=== PATIENT | male | born 1935 | race Caucasian/White ===

== ENCOUNTER 2016-07-19 07:16 | Inpatient (IN) | payer MEDICARE ==
[~2016-07-19] VITALS: Ht 160 cm; Wt 59.8 kg
[2016-07-19] VITALS (17 sets, daily range): BP systolic 101–142; BP diastolic 54–72; PULSE 68–113; RESP 18–36; TEMP 96.1–98.7; O2SAT 92–100
[~2016-07-19 07:16] MED LIST: ACET; ALBU0.086 INH; ALBU17I INH; ASPI81TA82 PO; ATOR80TA PO; DULO20 PO; FURO20TA PO; HYDR10SO PO; IPRA0.02 NEB; ISOS30TA3 PO; LEVO500T3 PO; LISI5 PO; LORA1TAB PO; MULT-65 PO; NITR0.4S SL; OMEP20TA39 PO; PRED1TAB PO; STOO100T PO; TAMS0.4C67 PO; TICA90 PO; TOBRO; VITA20003 PO; Z.0.OXYGEN INH
--- NOTE | 2016-07-19 07:46 | PD ---
HPI Chief Complaint: Respiratory Distress Time Seen by Provider: 07:32 Travel History International Travel<30 days: No Contact w/Intl Traveler<30days: No Traveled to known affect area: No History of Present Illness HPI 81yo M with PMH of COPD on home O2 3L NC, CHF, BPH, CAD s/p cardiac stent with JASWINDER left main, left anterior descending and left circumflex. Pt states he has been sob for 2 weeks. He was given duonebs x4 and methylprednisolone 125mg IV by EVAC and states he is a little better. Pt is still very sob and breathing at 32 breaths a minute. Pt immediately placed on BIPAP. Able to answer a few words at a time. Denies any n/v, abdominal pain, weakness or numbness. PFSH Past Medical History Arthritis: No Asthma: Yes Autoimmune Disease: No Blood Disorders: No Anxiety: No Depression: No Heart Rhythm Problems: Yes Cancer: No Cardiovascular Problems: Yes (pulmonary htn) High Cholesterol: Yes Chemotherapy: Yes Chest Pain: Yes Congestive Heart Failure: No COPD: Yes Cerebrovascular Accident: No Coronary Artery Disease: Yes Diabetes: No Diminished Hearing: No Endocrine: No Gastrointestinal Disorders: Yes (TOUBLE SWALLOWING- BUT CAN EAT REGULAR FOOD) GERD: Yes Glaucoma: No Genitourinary: No Headaches: No Hepatitis: No Hiatal Hernia: No Hypertension: No Immune Disorder: No Inguinal Hernia: Yes Kidney Stones: No Musculoskeletal: Yes (LEFT HIP REPLACEMENT) Neurologic: Yes (CEREBRAL ANEURYSM X 2) Psychiatric: Yes (ANXIETY) Reproductive: No Respiratory: Yes (COPD) Immunizations Current: No Migraines: No Myocardial Infarction: No Pneumonia: Yes (FEB 2010, ?2013) Radiation Therapy: No Renal Failure: No Seizures: No Sickle Cell Disease: No Sleep Apnea: No Thyroid Disease: No Ulcer: No PNEUMOCCOCAL Vaccine (Year): 2010 Past Surgical History Abdominal Surgery: Yes (RIGHT HERNIA) AICD: No Appendectomy: No Body Medical Devices: CEREBRAL CLIPS Cardiac Surgery: No Cholecystectomy: No Coronary Stent: Yes Ear Surgery: No Endocrine Surgery: No Eye Surgery: No Genitourinary Surgery: No Gynecologic Surgery: No Joint Replacement: No Neurologic Surgery: Yes (ANEURYSM REPAIR X 2) Oral Surgery: No Pacemaker: No Thoracic Surgery: Yes (RIGHT LUNG RESECTION) Other Surgery: Yes (CAROTID STENT) Social History Alcohol Use: No Tobacco Use: No Substance Use: No Allergies-Medications (Allergen,Severity, Reaction): Coded Allergies: Duragesic (Verified Allergy, Severe, 02/25/16) Uncoded Allergies: morphine (Allergy, Severe, 02/25/16) Reported Meds & Prescriptions Reported Meds & Active Scripts Active Reported Isosorbide Mononitrate ER (Isosorbide Mononitrate) 30 Mg Rosalie 30 Mg PO DAILY Vitamin D3 (Cholecalciferol) 1,000 Unit Tab 1,000 Units PO DAILY Ventolin Hfa 18 GM Inh (Albuterol Sulfate) 90 Mcg/Act Aer 2 Puff INH Q6H PRN Tamsulosin (Tamsulosin HCl) 0.4 Mg Cap 0.4 Mg PO HS Prednisone 10 Mg Tab 10 Mg PO DAILY Oxycodone ER (Oxycodone HCl) 20 Mg Tab 20 Mg PO DAILY Omeprazole 20 Mg Tab 20 Mg PO BID Multi Vitamin (Multiple Vitamin) 1 Tab Tab 1 Tab PO DAILY Ativan (Lorazepam) 1 Mg Tab 1 Mg PO TID PRN Ipratropium Neb (Ipratropium [place]) 0.5 Mg/2.5 Ml Amp 0.5 Mg NEB Q6HR PRN [place] (Hydrocodone-Acetaminophen) 10-325 Mg Tab 1 Tab PO Q6H PRN Lasix (Furosemide) 20 Mg Tab 20 Mg PO DAILY Formoterol Fumarate Dihydrate 1 Pow Pow 12 Mcg NEB BID USE WITH BUDESONIDE Budesonide Neb 0.5 Mg/2 Ml Neb 0.5 Mg NEB BID USE WITH FORMOTEROL 12MCG Cymbalta DR (Duloxetine HCl) 20 Mg Capdr 20 Mg PO DAILY Atorvastatin (Atorvastatin Calcium) 80 Mg Tab 80 Mg PO HS Aspirin Adult Low Strength (Aspirin) 81 Mg Tabdr 81 Mg PO DAILY Albuterol Neb (Albuterol Sulfate) 2.5 Mg/3 Ml Neb 2.5 Mg NEB QID PRN Acetylcysteine Liq/Neb (Acetylcysteine) 200 mg/ml Soln 2 Ml NEB Q6HR PRN Review of Systems Except as stated in HPI: all other systems reviewed are Neg Physical Exam Narrative GENERAL: 81yo M in distress. SKIN: Warm and dry. HEAD: Atraumatic. Normocephalic. EYES: Pupils equal and round. No scleral icterus. No injection or drainage. ENT: No nasal bleeding or discharge. Mucous membranes pink and moist. NECK: Trachea midline. No JVD. CARDIOVASCULAR: Regular rate and rhythm. No murmur appreciated. RESPIRATORY: + accessory muscle use. Expiratory wheezing on right lung. RR: 32 breaths a minute. GASTROINTESTINAL: Abdomen soft, non-tender, nondistended. No rebound tenderness or guarding. MUSCULOSKELETAL: No obvious deformities. No clubbing. No cyanosis. No edema. NEUROLOGICAL: Awake and alert. No obvious cranial nerve deficits. Motor grossly within normal limits. Normal speech. PSYCHIATRIC: Appropriate mood and affect; insight and judgment normal. Data Data Last Documented VS Vital Signs Date Time Temp Pulse Resp B/P Pulse Ox O2 Delivery O2 Flow Rate FiO2 07/19/16 08:00 95 07/19/16 07:27 Aerosol Mask 15 07/19/16 07:18 96.1 113 36 101/64 Orders Arterial Blood Gas (Abg) (07/19/16 ) Complete Blood Count With Diff (07/19/16 07:42) Basic Metabolic Panel (Bmp) (07/19/16 07:42) B-Type Natriuretic Peptide (07/19/16 07:42) Act Partial Throm Time (Ptt) (07/19/16 07:42) Prothrombin Time / Inr (Pt) (07/19/16 07:42) Magnesium (Mg) (07/19/16 07:42) Ckmb (Isoenzyme) Profile (07/19/16 07:42) Troponin I (07/19/16 07:42) Blood Culture (07/19/16 07:42) Iv Access Insert/Monitor (07/19/16 07:42) Electrocardiogram (07/19/16 07:42) Ecg Monitoring (07/19/16 07:42) Oximetry (07/19/16 07:42) Oxygen Administration (07/19/16 07:42) Chest, Single Ap (07/19/16 07:42) Albuterol Neb (Albuterol Neb) (07/19/16 08:00) Lactic Acid Sepsis Protocol (07/19/16 07:47) Resp Bipap / Cpap Non Invas Vt (07/19/16 ) Arterial Blood Gas (Abg) (07/19/16 ) Vancomycin Inj (Vancomycin Inj) (07/19/16 09:45) Piperacil-Tazo 3.375 Gm Premix (Zosyn 3. (07/19/16 09:45) Admit Order (Ed Use Only) (07/19/16 09:48) Labs Laboratory Tests Test 07/19/16 07/19/16 07/19/16 07/19/16 08:00 08:30 08:45 09:05 Blood Gas Puncture Site LT RADIAL LT RADIAL Blood Gas Patient Temperature 98.6 98.6 Blood Gas HCO3 26 mmol/L 28 mmol/L Blood Gas Base Excess 0.4 mmol/L 3.3 mmol/L Blood Gas Oxygen Saturation 92 % 92 % Arterial Blood pH 7.31 7.38 Arterial Blood Partial 53 mmHg 49 mmHg Pressure CO2 Arterial Blood Partial 82 mmHg 80 mmHG Pressure O2 Arterial Blood Oxygen Content 13.8 Vol % 15.7 Vol % Arterial Blood 1.4 % 2.3 % Carboxyhemoglobin Arterial Blood Methemoglobin 0.8 % 2.0 % Blood Gas Hemoglobin 10.6 G/DL 12.1 G/DL Oxygen Delivery Device BIPAP BIPAP Blood Gas Ventilator Setting IPAP12/EPAP6 IPAP12/EPAP6 White Blood Count 16.7 TH/MM3 Red Blood Count 4.08 MIL/MM3 Hemoglobin 12.3 GM/DL Hematocrit 38.1 % Mean Corpuscular Volume 93.5 FL Mean Corpuscular Hemoglobin 30.1 PG Mean Corpuscular Hemoglobin 32.2 % Concent Red Cell Distribution Width 17.9 % Platelet Count 163 TH/MM3 Mean Platelet Volume 9.6 FL Neutrophils (%) (Auto) 88.3 % Lymphocytes (%) (Auto) 6.8 % Monocytes (%) (Auto) 3.4 % Eosinophils (%) (Auto) 1.1 % Basophils (%) (Auto) 0.4 % Neutrophils # (Auto) 14.8 TH/MM3 Lymphocytes # (Auto) 1.1 TH/MM3 Monocytes # (Auto) 0.6 TH/MM3 Eosinophils # (Auto) 0.2 TH/MM3 Basophils # (Auto) 0.1 TH/MM3 CBC Comment DIFF FINAL Differential Comment Prothrombin Time 10.0 SEC Prothromb Time International 0.9 RATIO Ratio Activated Partial 24.1 SEC Thromboplast Time Sodium Level 143 MEQ/L Potassium Level 3.7 MEQ/L Chloride Level 104 MEQ/L Carbon Dioxide Level 31.6 MEQ/L Anion Gap 7 MEQ/L Blood Urea Nitrogen 15 MG/DL Creatinine 0.58 MG/DL Estimat Glomerular Filtration 135 ML/MIN Rate Random Glucose 132 MG/DL Calcium Level 8.3 MG/DL Magnesium Level 2.1 MG/DL Total Creatine Kinase 43 U/L Troponin I 0.04 NG/ML B-Type Natriuretic Peptide 127 PG/ML Lactic Acid Level 4.7 mmol/L Blood Gas Inspired Oxygen 40 % MDM Medical Decision Making Medical Screen Exam Complete: Yes Emergency Medical Condition: Yes Interpretation(s) EKG: Sinus tachycardia at 107bpm. STD V2-V6. Low voltage. Differential Diagnosis CHF exacerbation vs. COPD exacerbation vs. Pneumonia vs. ACS Narrative Course 81yo M with SOB for 3 weeks, worsening. Pt presents tachypneic with wheezing on exam. Pt immediately placed on BIPAP and feels better. ABG initially showed respiratory acidosis with pH 7.31. pCO2 53. O2 82. HCO3. Pt is on BIPAP 12/6 at 40%. After about an hour on the BIPAP, repeat ABG showed improved respiratory status. pH 7.37. pCO2 48.8 pO2 79.8. HCO2 28. CXR showed presumed scar at right lung base with background lung changes suggestive of obstructive airway disease/emphysema. No acute finding. Pt given albuterol neb Q2 Hr. Labs reviewed, leukocytosis at 16.7. Troponin 0.04. Lactic acid elevated at 4.7. Empirically given vancomycin and zosyn after blood cultures drawn. Pt initially was given almost 1 liter of NS IVF when BP initially was systolic 80s but stopped after I found out pt had history of CHF. BP improved to systolic in the 120s. HR also decreased to the 90s. Pt feels better on the BIPAP and blood gas is improving so will continue pt on BIPAP for now. Discussed with family possibility of intubation and they are open to do. Discussed with segmental paver installer Dr. Agarwal and accepted to the ICU. Critical Care Narrative Aggregate critical care time was 75 minutes. Time to perform other separately billable procedures was not included in the critical care time. My time did not include minutes spent treating any other patients simultaneously or on activities that did not directly contribute to the patient's treatment. The services I provided to this patient were to treat and/or prevent clinically significant deterioration that could result in: cardiovascular and respiratory arrest and . I provided critical care services requiring my management, as noted below: Chart data review, documentation time, medication orders and management, vital sign assessments/reviewing monitor data, ordering and reviewing lab tests, ordering and interpreting/reviewing x-rays and diagnostic studies, care of the patient and discussion of the patient with the admitting physicians. Diagnosis Primary Impression: Acute hypercapnic respiratory failure Admitting Information Admitting Physician Requests: it Ebonie Mariscal DO Jul 19, 2016 07:46
[2016-07-19] MEDS: RESP: ALBUTEROL 2.5 MG/3 ML NEB (SCH) NEB ×7 (07:53→23:50)
--- NOTE | 2016-07-19 08:08 | RADRPT ---
EXAM DATE/TIME: 07/19/2016 07:39 [facility] COMPARISON: CHEST SINGLE AP, February 27, 2016, 3:43. INDICATIONS : Patient has been short of breath since yesterday. MEDICAL HISTORY : Emphysema. Asthma SURGICAL HISTORY : Right lung resection ENCOUNTER: Initial ACUITY: 1 day PAIN SCORE: 0/10 LOCATION: chest FINDINGS: Portable AP view of the chest demonstrates a normal-sized cardiac silhouette calcification of the aor ta. Lungs are hyperinflated and there is chronic atelectasis versus scar at the right base. No pleura l effusion or pneumothorax is identified. Bones and soft tissues demonstrate no acute finding. Azygos fissure is present. CONCLUSION: Presumed scar at the right lung base with background lung changes suggestive of obstructive airways d isease/emphysema. Otherwise, no acute finding is identified. Vern Real MD on July 19, 2016 at 8:01 Board Certified Radiologist. This report was verified electronically.
[2016-07-19 08:10] LABS: BLOOD GAS BASE EXCESS 0.4 mmol/L (-2-2); BLOOD GAS CARBOXYHEMOGLOBIN 1.4 % (0-4); BLOOD GAS HCO3 26 mmol/L (22-26); BLOOD GAS METHEMOGLOBIN 0.8 % (0-2); BLOOD GAS O2 HGB SATURATION 92 % (90-100); BLOOD GAS OXYGEN CONTENT 13.8 Vol % (12.0-20.0); BLOOD GAS PCO2 53 mmHg (38-42); BLOOD GAS PO2 82 mmHg (61-120); BLOOD GAS TOTAL HGB 10.6 G/DL (12.0-16.0); CRITICAL VALUE YES; TEMP CORR TO 98.6
[2016-07-19 08:11] LABS: DRAW SITE LT RADIAL; NUMBER OF ARTERIAL PUNCTURES 1; OXYGEN DEVICE BIPAP; STAT YES; ULNAR PULSE PRESENT; VENT SETTINGS IPAP12/EPAP6
[2016-07-19 09:02] LABS: AUTOMATED NEUTROPHIL # 14.8 TH/MM3 (1.8-7.7); BASOPHIL # 0.1 TH/MM3 (0-0.2); BASOPHIL % 0.4 % (0.0-2.0); EOSINOPHIL # 0.2 TH/MM3 (0-0.4); EOSINOPHIL % 1.1 % (0.0-4.0); HEMATOCRIT 38.1 % (39.0-51.0); HEMO FLAGS DIFF FINAL; LYMPH % 6.8 % (9.0-44.0); LYMPHOCYTE # 1.1 TH/MM3 (1.0-4.8); MEAN CELL VOLUME 93.5 FL (80.0-100.0); MEAN CORPUSCULAR HEMOGLOBIN 30.1 PG (27.0-34.0); MEAN CORPUSCULAR HGB CONC 32.2 % (32.0-36.0); MONO % 3.4 % (0.0-8.0); NEUT % 88.3 % (16.0-70.0); PLATELET COUNT 163 TH/MM3 (150-450); RED BLOOD COUNT 4.08 MIL/MM3 (4.50-5.90); RED CELL DISTRIBUTION WIDTH 17.9 % (11.6-17.2); WHITE BLOOD COUNT 16.7 TH/MM3 (4.0-11.0)
[2016-07-19 09:11] LABS: APTT (PATIENT) 24.1 SEC (24.3-30.1); INTERNATIONAL NORMALIZED RATIO 0.9 RATIO
[2016-07-19 09:12] LABS: BLOOD GAS BASE EXCESS 3.3 mmol/L (-2-2); BLOOD GAS CARBOXYHEMOGLOBIN 2.3 % (0-4); BLOOD GAS HCO3 28 mmol/L (22-26); BLOOD GAS O2 HGB SATURATION 92 % (90-100); BLOOD GAS OXYGEN CONTENT 15.7 Vol % (12.0-20.0); BLOOD GAS PCO2 49 mmHg (38-42); BLOOD GAS PO2 80 mmHG (61-120); BLOOD GAS TOTAL HGB 12.1 G/DL (12.0-16.0); TEMP CORR TO 98.6
[2016-07-19 09:13] LABS: CRITICAL VALUE NO; DRAW SITE LT RADIAL; FIO2 40 %; NUMBER OF ARTERIAL PUNCTURES 1; OXYGEN DEVICE BIPAP; STAT YES; ULNAR PULSE PRESENT; VENT SETTINGS IPAP12/EPAP6
[2016-07-19 09:16] LABS: BICARBONATE 31.6 MEQ/L (21.0-32.0); MAGNESIUM 2.1 MG/DL (1.5-2.5); POTASSIUM 3.7 MEQ/L (3.5-5.1)
[2016-07-19] MEDS ORDERED: VANCOMYCIN INJ 1,000 MG in SODIUM CHLOR 0.9% 250 ML INJ 250 ML IV ONE (09:45)
[2016-07-19] MEDS ORDERED: PIPERACIL-TAZO 3.375 GM PREMIX 50 ML IV ONE (09:45)
[2016-07-19] MEDS ORDERED: MISCELLANEOUS NURSING INFORMATION XX SCH (10:00)
[2016-07-19] MEDS ORDERED: METOCLOPRAMIDE HCL 10 MG/2 ML VIAL IV PRN (10:00)
[2016-07-19] MEDS ORDERED: ZOLPIDEM TARTRATE 5 MG TAB PO PRN (10:00)
[2016-07-19] MEDS ORDERED: ACETAMINOPHEN 325 MG TAB PO PRN (10:00)
[2016-07-19] MEDS: HEPARIN SODIUM - SQ 10,000 UNITS/ML VIAL SQ SCH ×2 (10:00→21:57)
[2016-07-19] MEDS ORDERED: SODIUM CHLORIDE 0.9% FLUSH 5 ML FLUSH IV FLUSH PRN (10:00)
[2016-07-19] MEDS ORDERED: RESP: ALBUTEROL 2.5 MG/IPRATROPIUM 0.5 MG NEB (PRN) INH (10:00)
[2016-07-19] MEDS ORDERED: ONDANSETRON HCL 4 MG/2 ML VIAL IV PRN (10:00)
[2016-07-19] MEDS ORDERED: CHLORHEXIDINE GLUCONATE 2 % 1 PACK (2 CLOTHS) TOP PRN (10:00)
[2016-07-19 10:50] LABS: LACTIC ACID GHOST NOT REPORTABLE
[2016-07-19] MEDS ORDERED: PRED10 PO (12:19)
[2016-07-19] MEDS ORDERED: ALBU0.08 NEB (12:19)
[2016-07-19] MEDS ORDERED: VENTAER INH (12:19)
[2016-07-19] MEDS ORDERED: DULO20 PO (12:19)
[2016-07-19] MEDS ORDERED: ACET20SO3 NEB (12:19)
[2016-07-19] MEDS ORDERED: VITA100018 PO (12:19)
[2016-07-19] MEDS ORDERED: LORA-474 PO (12:19)
[2016-07-19] MEDS ORDERED: TAMS0.4C4 PO (12:19)
[2016-07-19] MEDS ORDERED: ATOR1TAB18 PO (12:19)
[2016-07-19] MEDS ORDERED: MULT-135 PO (12:19)
[2016-07-19] MEDS ORDERED: BUDE0.5S NEB (12:19)
[2016-07-19] MEDS ORDERED: ISOS30TA3 PO (12:19)
[2016-07-19] MEDS ORDERED: OXYC-405 PO (12:19)
[2016-07-19] MEDS ORDERED: HYDR-3366 PO (12:19)
[2016-07-19] MEDS ORDERED: FURO1TAB62 PO (12:19)
[2016-07-19] MEDS ORDERED: OMEP20TA PO (12:19)
[2016-07-19] MEDS ORDERED: ASPI1TAB91 PO (12:19)
[2016-07-19] MEDS ORDERED: IPRA0.02 NEB (12:19)
[2016-07-19] MEDS ORDERED: FORM1POW2 NEB (12:19)
--- NOTE | 2016-07-19 15:20 | EKG ---
Date Performed: 07/19/2016 Time Performed: 08:02:58 PTAGE: 81 years EKG: SINUS TACHYCARDIA LOW QRS VOLTAGE IN EXTREMITY LEADS SEPTAL MYOCARDIAL INFARCTION ST DEPRES MAGGIE, CONSIDER LATERAL ISCHEMIA ABNORMAL ECG PREVIOUS TRACING : 02/27/2016 04.55 Compared to previous tracing, lateral ST depression is now present, inferior T wave inversion is no longer evident. DOCTOR: Peter Feliciano Interpretating Date/Time 07/19/2016 15:19:38
[2016-07-19] MEDS: RESP: ALBUTEROL 2.5 MG/IPRATROPIUM 0.5 MG NEB (SCH) INH ×3 (15:32→23:50)
[2016-07-19] MEDS: RESP: ALBUTEROL 2.5 MG/IPRATROPIUM 0.5 MG NEB (SCH) NEB ×5 (15:33→23:47)
[2016-07-19] MEDS: AZITHROMYCIN INJ 500 MG in SODIUM CHLOR 0.9% 250 ML INJ 250 ML IV SCH (15:41)
[2016-07-19] MEDS ORDERED: ALPRAZolam 1 MG TAB PO ONE (15:45)
[2016-07-19] MEDS: CEFEPIME INJ 2,000 MG in SODIUM CHLORIDE 0.9% INJ 100 ML IV SCH (17:31)
[2016-07-19] MEDS: methylPREDNISolone SOD SUCC 40 MG/1 ML VIAL IV PUSH SCH (17:31)
--- NOTE | 2016-07-19 17:52 | HHI.HP ---
HPI Service Critical Care Medicine Primary Care Physician Chan Brewster MD, PhD Admission Diagnosis Hypoxic and hypercapneic respiratory failure Diagnosis: Travel History International Travel<30 Days: No Contact w/Intl Traveler <30 Da: No Traveled to Known Affected Are: No History of Present Illness 81-year-old male with past medical history of COPD on home O2 3L NC, CHF, BPH, coronary artery disease s/p cardiac stent 02/26/16 with drug eluting stent left main, left anterior descending and left circumflex. Per patient statement he has been short of breath for 2 weeks. He was given duonebs x4 and methylprednisolone 125mg IV by EVAC and he admits some improvement. Review of Systems ROS Unable to obtain patient on facemask BiPAP Past Family Social History Allergies: Coded Allergies: Duragesic (Verified Allergy, Severe, 02/25/16) Uncoded Allergies: morphine (Allergy, Severe, 02/25/16) Past Medical History Coronary artery disease Hypertension Hyperlipidemia COPDsevere, FEV1 less than 500 mL's Esophageal strictures Chronic hypoxemia Lumbar stenosis Prior acute [place] Emphysema Past Surgical History Prostate biopsy Opening her's and clipping of a internal carotid artery Craniotomy Bypass graft to the left subclavian artery to a colonoscopy EGD Cataract surgery Right inguinal hernia repair Right lower lobectomy with regimen section secondary to right lung mass Percutaneous stents to the left internal iliac artery, left common iliac 2 Vasectomy Left total hip arthroplasty Reported Medications Reported Meds & Active Scripts Active Reported Isosorbide Mononitrate ER (Isosorbide Mononitrate) 30 Mg Rosalie 30 Mg PO DAILY Vitamin D3 (Cholecalciferol) 1,000 Unit Tab 1,000 Units PO DAILY Ventolin Hfa 18 GM Inh (Albuterol Sulfate) 90 Mcg/Act Aer 2 Puff INH Q6H PRN Tamsulosin (Tamsulosin HCl) 0.4 Mg Cap 0.4 Mg PO HS Prednisone 10 Mg Tab 10 Mg PO DAILY Oxycodone ER (Oxycodone HCl) 20 Mg Tab 20 Mg PO DAILY Omeprazole 20 Mg Tab 20 Mg PO BID Multi Vitamin (Multiple Vitamin) 1 Tab Tab 1 Tab PO DAILY Ativan (Lorazepam) 1 Mg Tab 1 Mg PO TID PRN Ipratropium Neb (Ipratropium Lane) 0.5 Mg/2.5 Ml Amp 0.5 Mg NEB Q6HR PRN [place] (Hydrocodone-Acetaminophen) 10-325 Mg Tab 1 Tab PO Q6H PRN Lasix (Furosemide) 20 Mg Tab 20 Mg PO DAILY Formoterol Fumarate Dihydrate 1 Pow Pow 12 Mcg NEB BID USE WITH BUDESONIDE Budesonide Neb 0.5 Mg/2 Ml Neb 0.5 Mg NEB BID USE WITH FORMOTEROL 12MCG Cymbalta DR (Duloxetine HCl) 20 Mg Capdr 20 Mg PO DAILY Atorvastatin (Atorvastatin Calcium) 80 Mg Tab 80 Mg PO HS Aspirin Adult Low Strength (Aspirin) 81 Mg Tabdr 81 Mg PO DAILY Albuterol Neb (Albuterol Sulfate) 2.5 Mg/3 Ml Neb 2.5 Mg NEB QID PRN Acetylcysteine Liq/Neb (Acetylcysteine) 200 mg/ml Soln 2 Ml NEB Q6HR PRN Active Ordered Medications Current Medications Medications (Trade) Dose Ordered Sig/Fredis Route PRN Reason Start Time Stop Time Status Last Admin Dose Admin IV Flush (NS Flush) 2 ml UNSCH PRN IV FLUSH FLUSH AFTER USING IV ACCESS 07/19/16 10:00 IV Flush (NS Flush) 2 ml BID IV FLUSH 07/19/16 21:00 Acetaminophen (Tylenol) 650 mg Q6H PRN PO PAIN 1-10 AND/OR FEVER >101F 07/19/16 10:00 Morphine Sulfate (Morphine Inj) 2 mg Q2H PRN IV PAIN SCALE 6 TO 10 07/19/16 10:00 Famotidine (Pepcid Inj) 20 mg Q12HR IV PUSH 07/19/16 21:00 Lorazepam (Ativan Inj) 2 mg Q4H PRN IV Agitation/Sedation 07/19/16 10:00 Ondansetron HCl (Zofran Inj) 4 mg Q6H PRN IV NAUSEA OR VOMITING 07/19/16 10:00 Metoclopramide HCl (Reglan Inj) 10 mg Q6H PRN IV NAUSEA OR VOMITING 07/19/16 10:00 Docusate Sodium (Colace) 100 mg BID PO 07/19/16 21:00 Zolpidem Tartrate (Ambien) 5 mg HS PRN PO INSOMNIA 07/19/16 10:00 Heparin Sodium (Porcine) (Heparin Inj) 5,000 units Q12H SQ 07/19/16 10:00 07/19/16 10:00 Miscellaneous Information 1 [id number] XX 07/19/16 10:00 Chlorhexidine Gluconate (Chlorhexidine 2% Cloth) 3 pack Taper DAILY@04 TOP 07/20/16 04:00 07/16/17 03:59 Chlorhexidine Gluconate (Chlorhexidine 2% Cloth) 3 pack UNSCH PRN TOP HYGIENIC CARE 07/19/16 10:00 Methylprednisolone Sodium Succinate 40 mg 40 mg Q6HR IV PUSH 07/19/16 18:00 07/19/16 17:31 Cefepime HCl 2000 mg/Sodium Chloride 100 ml @ 200 mls/hr Q8H IV 07/19/16 17:00 07/19/16 17:31 Azithromycin/ Sodium Chloride (Zithromax Inj/ NS 250 ml Inj) 250 ml @ 250 mls/hr Q24H IV 07/19/16 16:00 07/19/16 15:41 Aspirin (Ecotrin Ec) 81 mg DAILY PO 07/20/16 09:00 Atorvastatin Calcium (Lipitor) 80 mg HS PO 07/19/16 21:00 Duloxetine HCl (Cymbalta Dr) 20 mg DAILY PO 07/20/16 09:00 Furosemide (Lasix) 20 mg DAILY PO 07/20/16 09:00 Acetaminophen/ Hydrocodone Bitart ([place] 10-325 Mg) 1 tab Q6H PRN PO BREAKTHROUGH PAIN 07/19/16 15:30 Isosorbide Mononitrate (Imdur) 30 mg DAILY PO 07/20/16 09:00 Multivitamins (Theragran) 1 tab DAILY PO 07/20/16 09:00 Tamsulosin HCl (Flomax) 0.4 mg HS PO 07/19/16 21:00 Patient Own Medication PT OWN MED: FORA... BID INH 07/19/16 21:00 Future Hold Family History Noncontributory Social History Significant history of prior tobacco abuse. At least [id number] history. Quit 5 or 6 years ago. Rare alcohol use Physical Exam Vital Signs Vital Signs Date Time Temp Pulse Resp B/P Pulse Ox O2 Delivery O2 Flow Rate FiO2 07/19/16 16:00 97.8 77 25 111/72 97 07/19/16 16:00 77 07/19/16 15:33 99 40 07/19/16 14:46 100 Bi-Pap 40 07/19/16 14:00 87 3/7/17 13:57 97 07/19/16 13:37 99 07/19/16 13:15 98.7 97 32 142/70 92 07/19/16 12:37 97.6 98 18 122/60 96 BiPAP 07/19/16 12:36 94 07/19/16 12:35 23 98 BiPAP 07/19/16 12:30 BiPAP 07/19/16 11:33 97 40 07/19/16 10:03 97 32 123/62 95 BiPAP 07/19/16 08:00 95 07/19/16 07:27 Aerosol Mask 15 07/19/16 07:18 96.1 113 36 101/64 94 Physical Exam GENERAL: Well-nourished, well-developed patient. On facemask BiPAP SKIN: Warm and dry. HEAD: Normocephalic. EYES: No scleral icterus. No injection or drainage. NECK: Supple, trachea midline. No JVD or lymphadenopathy. CARDIOVASCULAR: Regular rate and rhythm without murmurs, gallops, or rubs. RESPIRATORY: Breath sounds equal bilaterally. No accessory muscle use. Occasional wheezes GASTROINTESTINAL: Abdomen soft, non-tender, nondistended. MUSCULOSKELETAL: No cyanosis, or edema. BACK: Nontender without obvious deformity. No CVA tenderness. EXTREMITIES: Laboratory Laboratory Tests Test 07/19/16 07/19/16 07/19/16 07/19/16 08:00 08:30 08:45 09:05 Blood Gas Puncture Site LT RADIAL LT RADIAL Blood Gas Patient Temperature 98.6 98.6 Blood Gas HCO3 26 28 Blood Gas Base Excess 0.4 3.3 Blood Gas Oxygen Saturation 92 92 Arterial Blood pH 7.31 7.38 Arterial Blood Partial 53 49 Pressure CO2 Arterial Blood Partial 82 80 Pressure O2 Arterial Blood Oxygen Content 13.8 15.7 Arterial Blood 1.4 2.3 Carboxyhemoglobin Arterial Blood Methemoglobin 0.8 2.0 Blood Gas Hemoglobin 10.6 12.1 Oxygen Delivery Device BIPAP BIPAP Blood Gas Ventilator Setting IPAP12/EPAP6 IPAP12/EPAP6 White Blood Count 16.7 Red Blood Count 4.08 Hemoglobin 12.3 Hematocrit 38.1 Mean Corpuscular Volume 93.5 Mean Corpuscular Hemoglobin 30.1 Mean Corpuscular Hemoglobin 32.2 Concent Red Cell Distribution Width 17.9 Platelet Count 163 Mean Platelet Volume 9.6 Neutrophils (%) (Auto) 88.3 Lymphocytes (%) (Auto) 6.8 Monocytes (%) (Auto) 3.4 Eosinophils (%) (Auto) 1.1 Basophils (%) (Auto) 0.4 Neutrophils # (Auto) 14.8 Lymphocytes # (Auto) 1.1 Monocytes # (Auto) 0.6 Eosinophils # (Auto) 0.2 Basophils # (Auto) 0.1 CBC Comment DIFF FINAL Differential Comment Prothrombin Time 10.0 Prothromb Time International 0.9 Ratio Activated Partial 24.1 Thromboplast Time Sodium Level 143 Potassium Level 3.7 Chloride Level 104 Carbon Dioxide Level 31.6 Anion Gap 7 Blood Urea Nitrogen 15 Creatinine 0.58 Estimat Glomerular Filtration 135 Rate Random Glucose 132 Calcium Level 8.3 Magnesium Level 2.1 Total Creatine Kinase 43 Troponin I 0.04 B-Type Natriuretic Peptide 127 Lactic Acid Level 4.7 Blood Gas Inspired Oxygen 40 Test 07/19/16 07/19/16 07/19/16 10:50 12:20 13:15 Troponin I 0.07 Lactic Acid Level 1.2 Nasal Screen MRSA (PCR) NEGATIVE Date/Time Procedure Status Source Growth 07/19/16 15:00 Urine Culture Received Urine Random Urine Pending 07/19/16 08:45 Aerobic Blood Culture Received Blood Peripheral Pending 07/19/16 08:45 Anaerobic Blood Culture Received Blood Peripheral Pending Result Diagram: 07/19/16 0830 07/19/16 0830 Imaging Last 24 hours Impressions Chest X-Ray 07/19/16 0742 Signed Impressions: Service Date/Time: Tuesday, July 19, 2016 07:39 - CONCLUSION: Presumed scar at the right lung base with background lung changes suggestive of obstructive airways disease/emphysema. Otherwise, no acute finding is identified. Vern Real MD Assessment and Plan Problem List: (1) COPD (chronic obstructive pulmonary disease) ICD Code: J44.9 Status: Acute (2) CAD (coronary artery disease) ICD Code: I25.10 Status: Acute (3) Anxiety ICD Code: F41.9 Status: Acute Assessment and Plan Respiratory failure - COPD exacerbation - Underlying Emphysema - Tobacco use disorder - Systemic steroids DuoNeb's empiric antibiotics - BiPAP as needed - Frequent ABGs Coronary artery disease - Serial troponins - Cardiac origin of dyspnea less likely due to clear chest x-ray and minimally elevated enzymes - Continue home medications aspirin isosorbide statins and supportive care Hypertension - Currently normotensive - Continue isosorbide Hyperlipidemia - Home dose statins Emphysema - Due to chronic tobacco use - DuoNeb as needed - BiPAP DVT GI prophylaxis - Heparin Pepcid Critical Care: The total critical care time was 35 minutes. Time to perform other separately billable procedures was not included in the critical care time. George Agarwal MD Jul 19, 2016 17:52
[2016-07-19] MEDS: RESP: BUDESONIDE 0.5 MG/2 ML NEB NEB SCH (20:16)
[2016-07-19] MEDS ORDERED: FORMOTEROL INH SCH (21:00)
[2016-07-19] MEDS: FAMOTIDINE 20 MG/2 ML VIAL IV PUSH SCH (21:14)
[2016-07-19] MEDS: DOCUSATE SODIUM 100 MG CAP PO SCH (21:14)
[2016-07-19] MEDS: ATORVASTATIN 80 MG TAB PO SCH (21:14)
[2016-07-19] MEDS: SODIUM CHLORIDE 0.9% FLUSH 5 ML FLUSH IV FLUSH SCH (21:16)
[2016-07-19] MEDS: TAMSULOSIN HCL 0.4 MG CAP PO SCH (21:27)
[2016-07-20] VITALS (14 sets, daily range): BP systolic 98–132; BP diastolic 52–63; PULSE 78–96; RESP 16–30; TEMP 97.8–98.9; O2SAT 95–97
[2016-07-20] MEDS: methylPREDNISolone SOD SUCC 40 MG/1 ML VIAL IV PUSH SCH ×4 (00:06→17:19)
[2016-07-20] MEDS: CEFEPIME INJ 2,000 MG in SODIUM CHLORIDE 0.9% INJ 100 ML IV SCH ×3 (00:06→17:20)
[2016-07-20] MEDS: RESP: ALBUTEROL 2.5 MG/3 ML NEB (SCH) NEB ×14 (01:42→20:24)
[2016-07-20] MEDS: RESP: ALBUTEROL 2.5 MG/IPRATROPIUM 0.5 MG NEB (SCH) NEB ×13 (01:42→20:24)
[2016-07-20] MEDS: CHLORHEXIDINE GLUCONATE 2 % 1 PACK (2 CLOTHS) TOP SCH ×2 (04:00→23:54)
[2016-07-20] MEDS: RESP: ALBUTEROL 2.5 MG/IPRATROPIUM 0.5 MG NEB (SCH) INH ×6 (04:00→23:10)
[2016-07-20 04:29] LABS: AUTOMATED NEUTROPHIL # 12.2 TH/MM3 (1.8-7.7); EOSINOPHIL # 0.1 TH/MM3 (0-0.4); EOSINOPHIL % 0.5 % (0.0-4.0); HEMATOCRIT 34.1 % (39.0-51.0); HEMO FLAGS DIFF FINAL; LYMPH % 2.5 % (9.0-44.0); LYMPHOCYTE # 0.3 TH/MM3 (1.0-4.8); MEAN CORPUSCULAR HEMOGLOBIN 29.6 PG (27.0-34.0); MEAN CORPUSCULAR HGB CONC 31.2 % (32.0-36.0); MONO % 3.6 % (0.0-8.0); NEUT % 93.4 % (16.0-70.0); PLATELET COUNT 125 TH/MM3 (150-450); RED BLOOD COUNT 3.59 MIL/MM3 (4.50-5.90); RED CELL DISTRIBUTION WIDTH 18.3 % (11.6-17.2); WHITE BLOOD COUNT 13.1 TH/MM3 (4.0-11.0)
[2016-07-20 05:10] LABS: ALKALINE PHOSPHATASE 53 U/L (45-117); ALT (GPT) 20 U/L (12-78); ANION GAP 9 MEQ/L (5-15); AST (GOT) 16 U/L (15-37); BICARBONATE 27.9 MEQ/L (21.0-32.0); BLOOD UREA NITROGEN 26 MG/DL (7-18); CHLORIDE 107 MEQ/L (98-107); GLOMERULAR FILTRATION RATE 156 ML/MIN (>89); MAGNESIUM 2.4 MG/DL (1.5-2.5); POTASSIUM 3.9 MEQ/L (3.5-5.1); SODIUM (NA) 144 MEQ/L (136-145); TOTAL BILIRUBIN ADULT 0.9 MG/DL (0.2-1.0)
[2016-07-20] MEDS: ACETAMINOPHEN/HYDROcodone 325 MG/10 MG TAB PO PRN ×3 (06:22→19:55)
[2016-07-20] MEDS: RESP: BUDESONIDE 0.5 MG/2 ML NEB NEB SCH ×2 (08:30→20:14)
[2016-07-20] MEDS ORDERED: FUROSEMIDE 20 MG TAB PO SCH (09:00)
[2016-07-20] MEDS: FAMOTIDINE 20 MG/2 ML VIAL IV PUSH SCH ×2 (09:39→19:54)
[2016-07-20] MEDS: DULoxetine HCl DR 20 MG CAP PO SCH (09:39)
[2016-07-20] MEDS: MULTIVITAMIN TAB PO SCH (09:40)
[2016-07-20] MEDS: ISOSORBIDE MONONITRATE 30 MG TAB PO SCH (09:40)
[2016-07-20] MEDS: ASPIRIN EC 81 MG TABEC PO SCH (09:40)
[2016-07-20] MEDS: HEPARIN SODIUM - SQ 10,000 UNITS/ML VIAL SQ SCH ×2 (09:40→19:55)
[2016-07-20] MEDS: DOCUSATE SODIUM 100 MG CAP PO SCH ×2 (09:41→19:54)
[2016-07-20] MEDS: SODIUM CHLORIDE 0.9% FLUSH 5 ML FLUSH IV FLUSH SCH ×2 (09:42→19:56)
--- NOTE | 2016-07-20 11:59 | HHI.CCPN ---
Subjective Remarks/Hospital Course 81-year-old male with past medical history of COPD on home O2 3L NC, CHF, BPH, coronary artery disease s/p cardiac stent 02/26/16 with drug eluting stent left main, left anterior descending and left circumflex. Per patient statement he has been short of breath for 2 weeks. He was given duonebs x4 and methylprednisolone 125mg IV by EVAC and he admits some improvement. Objective Vital Signs Date Time Temp Pulse Resp B/P Pulse Ox O2 Delivery O2 Flow Rate FiO2 07/20/16 08:31 95 Nasal Cannula 3.00 07/20/16 06:00 86 07/20/16 04:00 98.5 25 98/55 07/19/16 22:10 40 Intake and Output 07/19/16 07/19/16 07/20/16 08:00 16:00 00:00 Intake Total 398 ml Output Total 150 ml 275 ml Balance -150 ml 123 ml Result Diagram: 07/20/16 0307 07/20/16 0328 Imaging Last 24 hours Impressions Chest X-Ray 07/19/16 0742 Signed Impressions: Service Date/Time: Tuesday, July 19, 2016 07:39 - CONCLUSION: Presumed scar at the right lung base with background lung changes suggestive of obstructive airways disease/emphysema. Otherwise, no acute finding is identified. Vern Real MD Objective Remarks GENERAL: Well-nourished, well-developed patient. On facemask BiPAP SKIN: Warm and dry. HEAD: Normocephalic. EYES: No scleral icterus. No injection or drainage. NECK: Supple, trachea midline. No JVD or lymphadenopathy. CARDIOVASCULAR: Regular rate and rhythm without murmurs, gallops, or rubs. RESPIRATORY: Breath sounds equal bilaterally. No accessory muscle use. Occasional wheezes GASTROINTESTINAL: Abdomen soft, non-tender, nondistended. MUSCULOSKELETAL: No cyanosis, or edema. BACK: Nontender without obvious deformity. No CVA tenderness. EXTREMITIES: A/P Problem List: (1) COPD (chronic obstructive pulmonary disease) ICD Code: J44.9 Status: Acute (2) CAD (coronary artery disease) ICD Code: I25.10 Status: Acute (3) Anxiety ICD Code: F41.9 Status: Acute Assessment and Plan Respiratory failure - COPD exacerbation - Underlying Emphysema - Tobacco use disorder - Systemic steroids DuoNeb's empiric antibiotics - BiPAP as needed Coronary artery disease - Serial troponins - Cardiac origin of dyspnea less likely due to clear chest x-ray and minimally elevated enzymes - No EKG changes - Continue home medications aspirin isosorbide statins and supportive care Hypertension - Currently normotensive - Continue isosorbide Hyperlipidemia - Home dose statins Emphysema - Due to chronic tobacco use - DuoNeb as needed - BiPAP DVT GI prophylaxis - Heparin Pepcid Level III George Agarwal MD Jul 20, 2016 11:59
[2016-07-20] MEDS: TICAGRELOR 90 MG TAB PO SCH ×2 (13:00→19:54)
[2016-07-20] MEDS: AZITHROMYCIN INJ 500 MG in SODIUM CHLOR 0.9% 250 ML INJ 250 ML IV SCH (15:03)
[2016-07-20] MEDS: ATORVASTATIN 80 MG TAB PO SCH (19:55)
[2016-07-20] MEDS: TAMSULOSIN HCL 0.4 MG CAP PO SCH (19:57)
[2016-07-21] VITALS (15 sets, daily range): BP systolic 107–140; BP diastolic 53–79; PULSE 72–99; RESP 21–25; TEMP 98–99.2; O2SAT 93–99
[2016-07-21] MEDS: methylPREDNISolone SOD SUCC 40 MG/1 ML VIAL IV PUSH SCH ×2 (01:11→05:03)
[2016-07-21] MEDS: ACETAMINOPHEN/HYDROcodone 325 MG/10 MG TAB PO PRN ×3 (01:11→15:08)
[2016-07-21] MEDS: CEFEPIME INJ 2,000 MG in SODIUM CHLORIDE 0.9% INJ 100 ML IV SCH ×2 (01:11→07:44)
[2016-07-21] MEDS: RESP: ALBUTEROL 2.5 MG/IPRATROPIUM 0.5 MG NEB (SCH) INH ×6 (03:28→23:43)
[2016-07-21 04:25] LABS: AUTOMATED NEUTROPHIL # 9.9 TH/MM3 (1.8-7.7); BASOPHIL % 0.1 % (0.0-2.0); HEMATOCRIT 29.2 % (39.0-51.0); HEMO FLAGS DIFF FINAL; LYMPH % 2.7 % (9.0-44.0); LYMPHOCYTE # 0.3 TH/MM3 (1.0-4.8); MEAN CELL VOLUME 92.9 FL (80.0-100.0); MEAN CORPUSCULAR HEMOGLOBIN 30.5 PG (27.0-34.0); MEAN CORPUSCULAR HGB CONC 32.8 % (32.0-36.0); MONO % 3.3 % (0.0-8.0); NEUT % 93.9 % (16.0-70.0); PLATELET COUNT 116 TH/MM3 (150-450); RED BLOOD COUNT 3.14 MIL/MM3 (4.50-5.90); RED CELL DISTRIBUTION WIDTH 17.7 % (11.6-17.2); WHITE BLOOD COUNT 10.5 TH/MM3 (4.0-11.0)
[2016-07-21 04:44] LABS: ALT (GPT) 20 U/L (12-78); ANION GAP 8 MEQ/L (5-15); AST (GOT) 18 U/L (15-37); BICARBONATE 27.8 MEQ/L (21.0-32.0); BLOOD UREA NITROGEN 25 MG/DL (7-18); CHLORIDE 107 MEQ/L (98-107); GLOMERULAR FILTRATION RATE 130 ML/MIN (>89); MAGNESIUM 2.3 MG/DL (1.5-2.5); POTASSIUM 3.4 MEQ/L (3.5-5.1); SODIUM (NA) 143 MEQ/L (136-145)
[2016-07-21 04:46] LABS: ALKALINE PHOSPHATASE 48 U/L (45-117); TOTAL BILIRUBIN ADULT 0.7 MG/DL (0.2-1.0)
[2016-07-21 04:56] LABS: BLOOD GAS BASE EXCESS 1.6 mmol/L (-2-2); BLOOD GAS CARBOXYHEMOGLOBIN 1.8 % (0-4); BLOOD GAS HCO3 25 mmol/L (22-26); BLOOD GAS METHEMOGLOBIN 1.1 % (0-2); BLOOD GAS O2 HGB SATURATION 95 % (90-100); BLOOD GAS OXYGEN CONTENT 13.1 Vol % (12.0-20.0); BLOOD GAS PCO2 35 mmHg (38-42); BLOOD GAS PO2 103 mmHg (61-120); BLOOD GAS TOTAL HGB 9.6 G/DL (12.0-16.0); CRITICAL VALUE NO; DRAW SITE RT RADIAL; LITER FLOW 3.5 L/M; NUMBER OF ARTERIAL PUNCTURES 1; OXYGEN DEVICE NASAL CANNULA; STAT NO; TEMP CORR TO 98.6; ULNAR PULSE PRESENT
[2016-07-21] MEDS: TICAGRELOR 90 MG TAB PO SCH ×2 (07:42→20:43)
[2016-07-21] MEDS: ASPIRIN EC 81 MG TABEC PO SCH (07:43)
[2016-07-21] MEDS: ISOSORBIDE MONONITRATE 30 MG TAB PO SCH (07:43)
[2016-07-21] MEDS: DULoxetine HCl DR 20 MG CAP PO SCH (07:43)
[2016-07-21] MEDS: FAMOTIDINE 20 MG/2 ML VIAL IV PUSH SCH (07:43)
[2016-07-21] MEDS: MULTIVITAMIN TAB PO SCH (07:43)
[2016-07-21] MEDS: DOCUSATE SODIUM 100 MG CAP PO SCH ×2 (07:43→20:43)
[2016-07-21] MEDS: SODIUM CHLORIDE 0.9% FLUSH 5 ML FLUSH IV FLUSH SCH ×2 (07:44→20:43)
--- NOTE | 2016-07-21 08:04 | HHI.PR ---
Subjective Remarks wants to go home thinks he is at baseline Objective Vitals heent neg heart reg lung scattered wheeze abd s/nt ext no edema Vital Signs Date Time Temp Pulse Resp B/P Pulse Ox O2 Delivery O2 Flow Rate FiO2 07/21/16 06:00 84 07/21/16 04:00 98.0 89 25 110/59 93 07/21/16 04:00 89 07/21/16 02:00 81 07/21/16 00:00 83 07/21/16 00:00 98.9 83 24 107/53 94 07/20/16 22:00 78 07/20/16 20:16 96 Nasal Cannula 3.00 07/20/16 20:00 98.0 79 26 115/52 96 07/20/16 20:00 79 07/20/16 19:00 96 Nasal Cannula 3.00 Bi-Pap 07/20/16 18:00 92 07/20/16 16:00 87 07/20/16 16:00 98.7 87 26 116/59 95 07/20/16 14:00 90 07/20/16 12:00 86 07/20/16 12:00 98.9 86 26 117/58 97 07/20/16 10:00 96 07/20/16 08:31 95 Nasal Cannula 3.00 07/20/16 07/20/16 07/21/16 15:00 23:00 07:00 Intake Total 667 ml 400 ml 672 ml Output Total 410 ml 200 ml 350 ml Balance 257 ml 200 ml 322 ml Intake Oral 240 ml 400 ml 550 ml IV Total 427 ml 122 ml Output Urine Total 410 ml 200 ml 350 ml # Voids 1 # Bowel Movements 1 1 Result Diagram: 07/21/16 0329 07/21/16 0329 A/P Problem List: (1) COPD (chronic obstructive pulmonary disease) Status: Acute Plan: admitted for acute copd exacerbation off bipap on baseline home o2 at 3lnc pt uses 10mg prednisone daily will convert solumedrol to prednisone and plan for taper. iv to po abx PT. oob and assess for baseline.....then if pt and want to go home then d/c either later today or in AM. dvt prophylaxis (2) Systolic CHF Status: Chronic Plan: stable. compensated. home meds (3) CAD (coronary artery disease) Status: Chronic Plan: ticagrelor/asa. imdur. statin. (4) Anxiety Status: Chronic (5) Hyperlipidemia Status: Chronic (6) BPH (benign prostatic hyperplasia) Status: Chronic Plan: floBlas Brooks MD Jul 21, 2016 08:04
[2016-07-21] MEDS: RESP: BUDESONIDE 0.5 MG/2 ML NEB NEB SCH ×2 (08:11→19:15)
[2016-07-21] MEDS ORDERED: POTASSIUM CHLORIDE 20 MEQ CONTROLLED RELEASE TAB PO ONE (08:15)
[2016-07-21] MEDS ORDERED: POTASSIUM PHOSPHATE MONOBASIC 500 MG TAB PO ONE (08:15)
[2016-07-21] MEDS: PANTOPRAZOLE SOD 40 MG DELAYED RELEASE TAB PO SCH (09:00)
[2016-07-21] MEDS: predniSONE 20 MG TAB PO SCH ×2 (10:57→20:44)
[2016-07-21] MEDS: LEVOFLOXACIN 500 MG TAB PO SCH (10:58)
[2016-07-21] MEDS: HEPARIN SODIUM - SQ 10,000 UNITS/ML VIAL SQ SCH ×2 (10:58→20:48)
[2016-07-21] MEDS: MORPHINE SULFATE 4 MG/ML INJ IV PRN ×2 (11:02→20:44)
[2016-07-21] MEDS: ATORVASTATIN 80 MG TAB PO SCH (20:43)
[2016-07-21] MEDS: TAMSULOSIN HCL 0.4 MG CAP PO SCH (20:44)
[2016-07-21] MEDS: LORazepam 2 MG/ML VIAL IV PRN (20:44)
[2016-07-22] VITALS: BP 118/56; PULSE 77; RESP 21; TEMP 98.8; O2SAT 98
[2016-07-22 02:00] VITALS: PULSE 83
[2016-07-22] MEDS: RESP: ALBUTEROL 2.5 MG/IPRATROPIUM 0.5 MG NEB (SCH) INH ×2 (03:28→07:32)
[2016-07-22 04:00] VITALS: BP 126/60; PULSE 83; RESP 19; TEMP 98.3; O2SAT 96
[2016-07-22] MEDS: CHLORHEXIDINE GLUCONATE 2 % 1 PACK (2 CLOTHS) TOP SCH (04:00)
[2016-07-22] MEDS: MORPHINE SULFATE 4 MG/ML INJ IV PRN (04:38)
[2016-07-22 06:00] VITALS: PULSE 75
--- NOTE | 2016-07-22 07:30 | HHI.PR ---
Subjective Remarks eager for d/c Objective Vitals heart rg lung good air entry abd s/nt ext no edema Vital Signs Date Time Temp Pulse Resp B/P Pulse Ox O2 Delivery O2 Flow Rate FiO2 07/22/16 06:00 75 07/22/16 04:00 98.3 83 19 126/60 96 07/22/16 04:00 83 07/22/16 02:00 83 07/22/16 00:00 77 07/22/16 00:00 98.8 77 21 118/56 98 07/21/16 22:00 75 07/21/16 20:54 99.2 88 22 140/66 99 07/21/16 20:00 86 07/21/16 19:19 98 Nasal Cannula 3.00 07/21/16 19:00 97 Nasal Cannula 3.00 Bi-Pap 07/21/16 18:00 99 07/21/16 16:00 98.0 89 21 136/64 97 07/21/16 16:00 81 07/21/16 14:00 87 07/21/16 12:00 86 07/21/16 12:00 98.0 72 22 122/79 98 07/21/16 10:00 91 07/21/16 08:11 97 Nasal Cannula 3.00 07/21/16 08:00 98 Nasal Cannula 3.00 Bi-Pap 07/21/16 08:00 98.0 89 22 133/64 98 07/21/16 08:00 83 07/21/16 07/21/16 07/22/16 15:00 23:00 07:00 Intake Total 700 ml Output Total 600 ml 250 ml 450 ml Balance 100 ml -250 ml -450 ml Intake Oral 500 ml IV Total 200 ml Output Urine Total 600 ml 250 ml 450 ml # Voids 3 # Bowel Movements 1 1 Result Diagram: 07/21/16 0329 07/21/16 0329 A/P Problem List: (1) COPD (chronic obstructive pulmonary disease) Status: Acute Plan: admitted for acute copd exacerbation off bipap on baseline home o2 at 3lnc pt uses 10mg prednisone daily will convert solumedrol to prednisone and plan for taper. iv to po abx pt says he is baseline and wants to go home. (2) Systolic CHF Status: Chronic Plan: stable. compensated. home meds (3) CAD (coronary artery disease) Status: Chronic Plan: ticagrelor/asa. imdur. statin. (4) Anxiety Status: Chronic (5) Hyperlipidemia Status: Chronic (6) BPH (benign prostatic hyperplasia) Status: Chronic Plan: Blas Shanks MD Jul 22, 2016 07:30
[2016-07-22] MEDS: MULTIVITAMIN TAB PO SCH (07:32)
[2016-07-22] MEDS: ISOSORBIDE MONONITRATE 30 MG TAB PO SCH (07:32)
[2016-07-22] MEDS: ASPIRIN EC 81 MG TABEC PO SCH (07:33)
[2016-07-22] MEDS: DULoxetine HCl DR 20 MG CAP PO SCH (07:33)
[2016-07-22] MEDS: predniSONE 20 MG TAB PO SCH (07:33)
[2016-07-22] MEDS: LEVOFLOXACIN 500 MG TAB PO SCH (07:33)
[2016-07-22] MEDS: TICAGRELOR 90 MG TAB PO SCH (07:33)
[2016-07-22] MEDS: DOCUSATE SODIUM 100 MG CAP PO SCH (07:33)
[2016-07-22] MEDS: PANTOPRAZOLE SOD 40 MG DELAYED RELEASE TAB PO SCH (07:33)
[2016-07-22] MEDS: RESP: BUDESONIDE 0.5 MG/2 ML NEB NEB SCH (07:34)
[2016-07-22] MEDS ORDERED: PRED10 PO (07:34)
[2016-07-22] MEDS: SODIUM CHLORIDE 0.9% FLUSH 5 ML FLUSH IV FLUSH SCH (07:34)
[2016-07-22] MEDS ORDERED: LEVA500T PO (07:34)
[2016-07-22] MEDS: LORazepam 2 MG/ML VIAL IV PRN (07:34)
--- NOTE | 2016-07-22 07:34 | HHI.DCPOC ---
Discharge Care Plan Diagnosis: (1) COPD (chronic obstructive pulmonary disease) with acute bronchitis Goals to Promote Your Health * To prevent worsening of your condition and complications * To maintain your health at the optimal level Directions to Meet Your Goals Take your medications as prescribed Follow your dietary instruction Follow activity as directed Keep your appointments as scheduled Take your immunizations and boosters as scheduled If your symptoms worsen call your PCP, if no PCP go to Urgent Care Center or Emergency Room Smoking is Dangerous to Your Health. Avoid second hand smoke Call the 24-hour hour crisis hotline for domestic abuse at Blas Awad MD Jul 22, 2016 07:34
[2016-07-22 07:49] VITALS: O2SAT 98
[2016-07-22] MEDS ORDERED: BUDE0.5S NEB (07:55)
[2016-07-22 08:00] VITALS: BP 114/57; PULSE 83; RESP 24; TEMP 98.6; O2SAT 90
--- NOTE | 2016-08-11 20:59 | HHI.DS ---
Discharge Summary Admission Date Jul 19, 2016 at 09:49 Discharge Date: Jul 22, 2016 Admitting Diagnosis Hypoxic and hypercapneic respiratory failure (1) COPD (chronic obstructive pulmonary disease) Diagnosis: Principal (2) Systolic CHF Diagnosis: Secondary (3) CAD (coronary artery disease) Diagnosis: Secondary (4) Anxiety Diagnosis: Secondary (5) Hyperlipidemia Diagnosis: Secondary (6) BPH (benign prostatic hyperplasia) Diagnosis: Secondary Hospital Course Admitted for copd exacerbation. placed on bipap initially but now off bipap on baseline home o2 at 3lnc pt uses 10mg prednisone daily will convert solumedrol to prednisone and plan for taper. iv to po abx pt says he is baseline and wants to go home. Pt Condition on Discharge: Stable Discharge Disposition: Discharge Home Discharge Instructions DIET: Follow Instructions for: Heart Healthy Diet Activities you can perform: Regular-No Restrictions Follow up Referrals: PCP Follow-up - [address] schneider New Medications: Prednisone (Prednisone) 10 Mg Tab 10 MG PO DIRECTED 30mg po bid x 3 days,20mg po bid x 3 days, 10mg po bid x 4 days, then 10mg po daily copd Days 30 Ref 6 TAB Levofloxacin (Levaquin) 500 Mg Tab 500 MG PO DAILY copd #7 TAB Continued Medications: Acetylcysteine Liq/Neb (Acetylcysteine Liq/Neb) 200 mg/ml Soln 2 ML NEB Q6HR PRN THICK SECRETIONS Ref 0 NEBULE Albuterol 18 GM Inh (Ventolin Hfa 18 GM Inh) 90 Mcg/Act Aer 2 PUFF INH Q6H PRN SHORTNESS OF BREATH #1 Ref 0 INHALER Albuterol Neb (Albuterol Neb) 2.5 Mg/3 Ml Neb 2.5 MG NEB QID PRN SHORTNESS OF BREATH #1 Ref [address] (Aspirin Adult Low Strength) 81 Mg Tabdr 81 MG PO DAILY TAB Atorvastatin (Atorvastatin) 80 Mg Tab 80 MG PO HS Cholesterol Management #30 Ref 0 TAB Budesonide Neb (Budesonide Neb) 0.5 Mg/2 Ml Neb 0.5 MG NEB BID USE WITH FORMOTEROL 12MCG Breathing Treatment Days 30 Ref 0 NEBULE (This prescription has been renewed) Cholecalciferol (Vitamin D3) 1,000 Unit Tab 1000 UNITS PO DAILY Nutritional Supplement #1 Ref [address] (Cymbalta ) 20 Mg Capdr 20 MG PO DAILY #30 Ref 0 CAP Formoterol Fumarate Dihydrate (Formoterol Fumarate Dihydrate) 1 Pow Pow 12 MCG NEB BID USE WITH BUDESONIDE INHALER Furosemide (Lasix) 20 Mg Tab 20 MG PO DAILY #30 Ref 0 TAB Hydrocodone-Acetaminophen ([place]) 10-325 Mg Tab 1 TAB PO Q6H PRN BREAKTHROUGH PAIN Ref 0 TAB Ipratropium Neb (Ipratropium Neb) 0.5 Mg/2.5 Ml Amp 0.5 MG NEB Q6HR PRN SHORTNESS OF BREATH Ref 0 NEBULE Isosorbide Mononitrate ER (Isosorbide Mononitrate ER) 30 Mg Rosalie 30 MG PO DAILY Prevent Chest Pain #30 Ref 0 TAB Lorazepam (Ativan) 1 Mg Tab 1 MG PO TID PRN ANXIETY Ref 0 TAB Multiple Vitamin (Multi Vitamin) 1 Tab Tab 1 TAB PO DAILY TAB Omeprazole (Omeprazole) 20 Mg Tab 20 MG PO BID #30 Ref 0 TAB Oxycodone ER (Oxycodone ER) 20 Mg Tab 20 MG PO DAILY Pain Management Ref 0 TAB Tamsulosin (Tamsulosin) 0.4 Mg Cap 0.4 MG PO HS Manage Prostate Problems #30 Ref 0 CAP Discontinued Medications: Prednisone (Prednisone) 10 Mg Tab 10 MG PO DAILY Ref 0 TAB Blas Awad MD Aug 11, 2016 20:59
== END 2016-07-22 10:20 | disposition home or self-care (01) | DRG 189 ==
LOC: NEPE 07:16 → NEDA 09:49 → HIMW 13:10
PROVIDERS: ADMIT Internal Medicine Critical Care Medicine; ATTEND Internal Medicine Critical Care Medicine
DX: J96.01 Acute respiratory failure with hypoxia (principal); J44.1 Chronic obstructive pulmonary disease with (acute) exacerbation; I50.22 Chronic systolic (congestive) heart failure; I11.0 Hypertensive heart disease with heart failure; N40.0 Benign prostatic hyperplasia without lower urinary tract symptoms; F41.9 Anxiety disorder, unspecified; I25.10 Atherosclerotic heart disease of native coronary artery without angina pectoris; E78.5 Hyperlipidemia, unspecified; K21.9 Gastro-esophageal reflux disease without esophagitis; G47.00 Insomnia, unspecified; Z95.5 Presence of coronary angioplasty implant and graft; Z99.81 Dependence on supplemental oxygen; Z87.891 Personal history of nicotine dependence; I25.2 Old myocardial infarction
CPT/HCPCS: 36600; 71010; 80048; 80053; 82550; 82805; 83605; 83735; 83880; 84100; 84484; 85025; 85610; 85730; 87040; 87070; 87086; 87205; 87641; 93005; 94002; 94640; 94664; 99292; J0456; J0692; J1644; J2060; J2270; J2543; J2765; J2920; J3370; J7050; J7512; J7613; J7626